=== PATIENT | male | born 1955 | race Caucasian/White ===

== ENCOUNTER 2020-12-30 11:20 | Inpatient (IN) ==
[2020-12-30] MEDS ORDERED: PANTOPRAZOLE 40 MG VIAL IV STA (12:11)
[2020-12-30] MEDS ORDERED: SODIUM CHLORIDE 0.9% 1,000 ML IV STA (12:11)
[2020-12-30 12:16] LABS: Basophils % 0.4 % (0.0-0.8); Eosinophils # 0.1 10*3/uL (0.0-0.87); Eosinophils % 1.2 % (0.00-10.9); Hematocrit 38.5 VOL% (42.0-52.0); Hemoglobin 12.8 GM/DL (14.0-18.0); Immature Granulocytes % 0.2 %; Immature Granulocytes Absolute 0.01 #; Lymphocytes # 1.1 10*3/uL (1.4-4.0); Lymphocytes % 22.9 % (21.2-54.2); Mean Corpuscular HGB Conc 33.2 GM/DL (32-36); Mean Corpuscular Volume 98.2 FL (87-102); Mean Platelet Volume 10.2 FL (9.6-12.0); Neutrophils % 64.3 % (38.7-73.9); Platelet Count 172 T/CUMM (130-400); Red Blood Count 3.92 MC/CUMM (3.8-5.5); Red Cell Distribution Width 13.2 % (9.3-17.3)
[2020-12-30 12:23] LABS: INR 1.1; PT Patient Result 11.5 SECS (9.8-11.9)
[2020-12-30 12:29] LABS: Alanine Aminotransferase 12 U/L (16-61); Albumin 3.6 G/DL (3.4-5.0); Alkaline Phosphatase 59 U/L (45-117); Aspartate Amino Transferase 22 U/L (0-37); Bilirubin,Total < 0.39 MG/DL (0.2-1.0); Blood Urea Nitrogen 6 MG/DL (7-18); Carbon Dioxide 30 MMOL/L (21-32); Estimated Glom Filtration Rate 88 ML/MIN; Glucose 111 MG/DL (74-106); Potassium 4.1 MMOL/L (3.5-5.1); Sodium 136 MMOL/L (136-145); Total Protein 6.9 G/DL (6.4-8.2)
[2020-12-30] MEDS ORDERED: DEXTROSE 50% 25 GM/50 ML VIAL IV PRN (13:51)
[2020-12-30] MEDS ORDERED: GLUCAGON 1 MG VIAL IM PRN (13:51)
[2020-12-30] MEDS ORDERED: ONDANSETRON 4 MG/2 ML VIAL IV PRN (13:51)
[2020-12-30] MEDS ORDERED: hydrALAZINE 20 MG/1 ML VIAL IV PRN (13:51)
[2020-12-30] MEDS: cefTRIAXone 1,000 MG in SYRINGE 1 EACH IV SCH (16:42)
[2020-12-30] MEDS: SODIUM CHLORIDE 0.9% 1,000 ML IV SCH (16:44)
[2020-12-30] MEDS: metroNIDAZOLE INJ 500 MG in PREMIX 1 EACH IV SCH ×2 (16:44→23:43)
[2020-12-30 20:03] LABS: Hematocrit 35.9 VOL% (42.0-52.0); Hemoglobin 11.6 GM/DL (14.0-18.0)
[2020-12-30] MEDS: PANTOPRAZOLE 40 MG VIAL IV SCH (21:35)
[2020-12-31] MEDS: metroNIDAZOLE INJ 500 MG in PREMIX 1 EACH IV SCH ×3 (06:08→23:15)
[2020-12-31 06:28] LABS: Hematocrit 32.7 VOL% (42.0-52.0); Hemoglobin 10.7 GM/DL (14.0-18.0)
[2020-12-31 06:29] LABS: Basophils % 0.9 % (0.0-0.8); Eosinophils # 0.1 10*3/uL (0.0-0.87); Eosinophils % 1.3 % (0.00-10.9); Hematocrit 31.9 VOL% (42.0-52.0); Hemoglobin 10.9 GM/DL (14.0-18.0); Immature Granulocytes % 0.2 %; Immature Granulocytes Absolute 0.01 #; Lymphocytes # 1.4 10*3/uL (1.4-4.0); Lymphocytes % 29.4 % (21.2-54.2); Mean Corpuscular HGB Conc 34.2 GM/DL (32-36); Mean Corpuscular Volume 97.9 FL (87-102); Mean Platelet Volume 10.8 FL (9.6-12.0); Monocytes % 9.1 % (1.7-12.7); Neutrophils % 59.1 % (38.7-73.9); Platelet Count 154 T/CUMM (130-400); Red Blood Count 3.26 MC/CUMM (3.8-5.5); Red Cell Distribution Width 13.3 % (9.3-17.3); White Blood Count 4.6 T/CUMM (4-12)
[2020-12-31 06:34] LABS: Calcium 8.5 MG/DL (8.5-10.1); Osmolality,Calculated 273.5 MOS/KG (273-304)
[2020-12-31] MEDS: SODIUM CHLORIDE 0.9% 1,000 ML IV SCH (08:59)
[2020-12-31] MEDS: NICOTINE 21 MG/24 HR PATCH TRANSDERM SCH (09:00)
[2020-12-31] MEDS: PANTOPRAZOLE 40 MG VIAL IV SCH ×2 (09:01→21:14)
[2020-12-31 11:40] LABS: Hematocrit 29.8 VOL% (42.0-52.0); Hemoglobin 9.8 GM/DL (14.0-18.0)
[2020-12-31] MEDS: cefTRIAXone 1,000 MG in SYRINGE 1 EACH IV SCH (14:02)
[2021-01-01] MEDS: SODIUM CHLORIDE 0.9% 1,000 ML IV SCH ×3 (01:47→23:07)
[2021-01-01 05:22] LABS: Basophils % 0.5 % (0.0-0.8); Eosinophils # 0.1 10*3/uL (0.0-0.87); Eosinophils % 1.5 % (0.00-10.9); Hematocrit 30.7 VOL% (42.0-52.0); Immature Granulocytes % 0.3 %; Immature Granulocytes Absolute 0.01 #; Lymphocytes # 1.2 10*3/uL (1.4-4.0); Mean Corpuscular HGB Conc 32.6 GM/DL (32-36); Mean Corpuscular Volume 99.7 FL (87-102); Mean Platelet Volume 10.1 FL (9.6-12.0); Monocytes % 10.8 % (1.7-12.7); Neutrophils % 56.9 % (38.7-73.9); Platelet Count 142 T/CUMM (130-400); Red Blood Count 3.08 MC/CUMM (3.8-5.5); Red Cell Distribution Width 13.2 % (9.3-17.3)
[2021-01-01 05:41] LABS: Calcium 8.4 MG/DL (8.5-10.1); Osmolality,Calculated 273.5 MOS/KG (273-304); Potassium 3.8 MMOL/L (3.5-5.1)
[2021-01-01 05:42] LABS: Hypochromasia 1+; Microcytosis 1+; Platelet Estimate Adequate
[2021-01-01] MEDS: metroNIDAZOLE INJ 500 MG in PREMIX 1 EACH IV SCH ×3 (06:20→23:06)
[2021-01-01] MEDS: LACTATED RINGERS 1,000 ML IV SCH (08:00)
[2021-01-01] MEDS ORDERED: propofoL 200 MG/20 ML VIAL IV ONE (09:07)
[2021-01-01] MEDS ORDERED: LIDOCAINE 2% 5 ML VIAL ONE (09:07)
[2021-01-01] MEDS: PANTOPRAZOLE 40 MG VIAL IV SCH (10:35)
[2021-01-01] MEDS: NICOTINE 21 MG/24 HR PATCH TRANSDERM SCH (10:35)
[2021-01-01] MEDS: cefTRIAXone 1,000 MG in SYRINGE 1 EACH IV SCH (15:50)
[2021-01-01] MEDS: PANTOPRAZOLE 40 MG TABLET PO SCH (20:42)
[2021-01-01] MEDS: POLYETHYLENE GLYCOL POWDER 17 GM PACK PO SCH (20:42)
[2021-01-02 05:58] LABS: Basophils % 0.5 % (0.0-0.8); Hematocrit 31.2 VOL% (42.0-52.0); Hemoglobin 10.3 GM/DL (14.0-18.0); Immature Granulocytes % 0.2 %; Immature Granulocytes Absolute 0.01 #; Lymphocytes # 1.4 10*3/uL (1.4-4.0); Lymphocytes % 33.7 % (21.2-54.2); Mean Platelet Volume 10.3 FL (9.6-12.0); Monocytes % 11.1 % (1.7-12.7); Neutrophils % 53.5 % (38.7-73.9); Platelet Count 144 T/CUMM (130-400); Red Blood Count 3.12 MC/CUMM (3.8-5.5); Red Cell Distribution Width 13.5 % (9.3-17.3); White Blood Count 4.1 T/CUMM (4-12)
[2021-01-02] MEDS: LACTATED RINGERS 1,000 ML IV SCH (06:12)
[2021-01-02] MEDS: metroNIDAZOLE INJ 500 MG in PREMIX 1 EACH IV SCH (06:12)
[2021-01-02 06:21] LABS: Atypical Lymphocytes Few; Eosinophils 2 % (0-10); Hypochromasia 1+; Lymphocytes 31 % (20-55); Microcytosis 1+; Platelet Estimate Adequate; Segmented Neutrophils 60 % (50-85); Total Cells Counted 100
[2021-01-02 06:25] LABS: Calcium 8.5 MG/DL (8.5-10.1); Osmolality,Calculated 276.4 MOS/KG (273-304); Potassium 3.9 MMOL/L (3.5-5.1)
[2021-01-02] MEDS ORDERED: MAGNESIUM SULF RIDER 2 GM in PREMIX 1 EACH IV ONE (07:17)
[2021-01-02] MEDS: NICOTINE 21 MG/24 HR PATCH TRANSDERM SCH (08:47)
[2021-01-02] MEDS: PANTOPRAZOLE 40 MG TABLET PO SCH (08:48)
[2021-01-02] MEDS: POLYETHYLENE GLYCOL POWDER 17 GM PACK PO SCH (08:48)
[2021-01-02 10:03] VITALS: BP 173/88
== END 2021-01-02 16:01 | disposition home health service (06) | DRG 378 ==
LOC: N.ED 11:20 → N.EDINP 13:51 → SUATTDRO 13:51 → N.EDINP 15:33 → N.4E 15:50
PROVIDERS: ADMIT Emergency Medicine; ATTEND Family Medicine